=== PATIENT | male | born 1985 | race African-American/Black ===

== ENCOUNTER 2024-12-26 00:57 | Emergency (ER) | payer OTHER ==
[~2024-12-26] VITALS: Ht 172.7 cm; Wt 68.2 kg
[2024-12-26 01:05] VITALS: TEMP 98
[2024-12-26 01:35] LABS: PLATELET COUNT (AUTO) 224 K/uL (150-450); RED BLOOD CELL COUNT(AUTO) 4.53 MIL/uL (4.50-5.90); RED CELL DISTRIBUTION WIDTH 15.1 % (11.5-14.5); WHITE BLOOD COUNT (AUTO) 4.7 K/uL (4.5-11.0)
[2024-12-26 01:48] LABS: CALCIUM, TOTAL 8.0 mg/dL (8.8-10.5); CREATININE 0.54 mg/dL (0.60-1.30); GLOMERULAR FILTR. RATE CALC > 60 mL/min (>60); GLUCOSE,RANDOM 95 mg/dL (70-110); SODIUM SERUM 138 mmol/L (136-145); UREA NITROGEN, BLOOD 16 mg/dL (7-18)
[2024-12-26 02:09] LABS: APPEARANCE,URINE CLEAR (CLEAR); GLUCOSE, URINE (UA) NEGATIVE (NEGATIVE); LEUKOCYTE ESTERASE ,URINE LARGE (NEGATIVE); NITRATE,URINE NEGATIVE (NEGATIVE); OCCULT BLOOD,URINE SMALL (NEGATIVE); SPECIFIC GRAVITIY, URINE 1.016 (1.003-1.030)
[2024-12-26 02:26] LABS: SQUAMOUS EPITHELIAL CELL,UR Few /LPF (None Seen)
[2024-12-26] MEDS: CEPHALEXIN MONOHYDRATE 500 MG CAPSULE PO ONE (03:03)
[2024-12-26 03:20] VITALS: BP 114/70; PULSE 71; RESP 15; O2SAT 100
[2024-12-26] MEDS: ACETAMINOPHEN 500 MG TABLET PO ONE (03:22)
== END 2024-12-26 03:30 ==
LOC: EMS 01:03
DX: N39.0 Urinary tract infection, site not specified (principal); R31.9 Hematuria, unspecified; F17.210 Nicotine dependence, cigarettes, uncomplicated; F14.90 Cocaine use, unspecified, uncomplicated; F15.90 Other stimulant use, unspecified, uncomplicated
CPT/HCPCS: 80048; 81001; 85025; 87086; 99283